=== PATIENT | male | born 1990 ===

== ENCOUNTER 2017-09-20 08:21 | Emergency (ER) | payer BC ==
[2017-09-20 08:28] VITALS: TEMP 98; O2SAT 98
[2017-09-20] MEDS ORDERED: Sodium Chloride 0.9% 1,000 ML IV SCH (09:15)
--- NOTE | 2017-09-20 09:24 | ED PDOC ---
HPI: Abdomen Time Seen by Provider: 09/20/17 08:43 Chief Complaint (Nursing): Abdominal Pain Chief Complaint (Provider): abdominal pain History Per: Patient History/Exam Limitations: no limitations Onset/Duration Of Symptoms: Hrs Outside of [place] travel?: No Current Symptoms Are (Timing): Better Context: Food Severity: Severe Pain Scale Rating Of: 10 Location Of Pain/Discomfort: RLQ, LLQ Quality Of Discomfort: Sharp (intermittent), Cramping Associated Symptoms: Chills, Nausea, Vomiting, Diarrhea (bloody). denies: Fever Exacerbating Factors: None Alleviating Factors: Other (vomiting and bowel movements) Additional Complaint(s): 26 yr old M presents to ED with complaint of abdominal pain accompanied by nonbilious/nonbloody vomiting and bloody diarrhea which began at 4am this morning. Patient reports abdominal pain was in lower abdomen, 10/10 sharp and crampy, alleviated by vomiting and bowel movements, not aggravated by anything. Last meal was a medium cheeseburger and a rack of ribs at 10pm last night. He was not able to tolerate water this morning. Denies fever, chills, weakness, dizziness, dysuria or hematuria. PMD: none PMHx: none SurgHx: appendectomy FMHx: noncontributory SocHx: denies tobacco/Etoh/drugs Medications: none Allergies: NKDA Past Medical History Vital Signs: Last Vital Signs Temp 98.0 F 09/20/17 08:37 Pulse 72 09/20/17 08:37 Resp 18 09/20/17 08:37 BP 127/76 09/20/17 08:37 Pulse Ox 98 09/20/17 10:35 - Medical History PMH: No Chronic Diseases - Surgical History Surgical History: Appendectomy - Family History Family History: States: No Known Family Hx - Living Arrangements Living Arrangements: With Family - Social History Current smoker - smoking cessation education provided: No Ex-Smoker (has not smoked in the last 12 months): No - Home Medications Home Medications: Ambulatory Orders Medication Instructions Recorded No Known Home Med 09/20/17 - Allergies Allergies/Adverse Reactions: Allergies Allergy/AdvReac Type Severity Reaction Status Date / Time nut - unspecified Allergy RASH Verified 09/20/17 08:34 pineapple Allergy RASH Verified 09/20/17 08:34 Review of Systems Constitutional: Negative for: Fever, Chills Eyes: Negative for: Vision Change ENT: Negative for: Nose Discharge, Mouth Swelling, Throat Pain Cardiovascular: Negative for: Chest Pain, Palpitations Respiratory: Negative for: Cough, Shortness of Breath Gastrointestinal: Positive for: Nausea, Vomiting, Abdominal Pain, Diarrhea Musculoskeletal: Negative for: Neck Pain, Shoulder Pain Skin: Negative for: Rash, Lesions, Jaundice Neurological: Negative for: Weakness, Confusion, Dizziness Physical Exam - Physical Exam Appears: Positive for: No Acute Distress Head Exam: Positive for: ATRAUMATIC, NORMOCEPHALIC Skin: Positive for: Normal Color, Warm, Dry Eye Exam: Positive for: EOMI, PERRL ENT: Positive for: TM Is/Are (normal), Other (dry lips, moist mucous membranes) . Negative for: Pharyngeal Erythema, Tonsillar Exudate Neck: Positive for: Painless ROM, Supple Cardiovascular/Chest: Positive for: Regular Rate, Rhythm. Negative for: Gallop , Murmur Respiratory: Positive for: Normal Breath Sounds. Negative for: Rales, Rhonchi Pulses-Carotid (L): 2+ Pulses-Carotid (R): 2+ Pulses-Dorsalis Pedis (L): 2+ Pulses-Dorsalis Pedis (R): 2+ Pulses-Radial (L): 2+ Pulses-Radial (R): 2+ Gastrointestinal/Abdominal: Positive for: Bowel Sounds (present), Soft. Negative for: Tenderness, Distended, Guarding, Rebound Back: Positive for: Normal Inspection Extremity: Positive for: Normal ROM. Negative for: Pedal Edema Neurologic/Psych: Positive for: Alert, alarm installer II-XII, Oriented, Mood/Affect (normal /full range) - Laboratory Results Result Diagrams: 09/20/17 09:30 09/20/17 09:30 - ECG O2 Sat by Pulse Oximetry: 98 - Progress ED Course And Treament: -CBC w/diff, CMP, UA, 1L NS IV, Zofran 4mg PO -10:35 Patient symptoms improved, PO challenge ordered -patient tolerated clear fluids, symptoms resolved Disposition - Clinical Impression Clinical Impression: Gastroenteritis - Patient ED Disposition Is Patient to be Admitted: No Counseled Patient/Family Regarding: Diagnosis, Need For Followup - Disposition Referrals: Eliseo Guy MD [Staff Provider] - Disposition: Routine/Home Disposition Time: 11:53 Condition: IMPROVED Additional Instructions: -follow up with your PMD and gastroenterology within 1 week -return to ED if symptoms worsen or persist Forms: [employer] (Arabic) Print Language: SWEDISH
[2017-09-20 09:51] LABS: URINE BILIRUBIN NEGATIVE (NEGATIVE); URINE BLOOD NEGATIVE (NEGATIVE); URINE CLARITY SLIGHTY-CLOUDY (Clear); URINE COLOR YELLOW (YELLOW); URINE GLUCOSE (UA) NEG (Normal); URINE LEUKOCYTE ESTERASE NEG Leu/uL (Negative); URINE PROTEIN NEGATIVE (NEGATIVE); URINE UROBILINOGEN 0.2-1.0 mg/dL (0.2-1.0)
[2017-09-20 09:53] LABS: BASO % 0.5 % (0.0-2.0); EOS % 0.1 % (0.0-4.0); HEMOGLOBIN 16.5 g/dL (12.0-18.0); LYMPH # 0.8 K/uL (1.0-4.3); LYMPH % 9.4 % (20.0-40.0); MEAN CELL VOLUME 88.6 fl (80.0-94.0); MEAN CORPUSCULAR HEMOGLOBIN 30.4 pg (27.0-31.0); MEAN CORPUSCULAR HGB CONC 34.3 g/dL (33.0-37.0); MONO # 0.6 K/uL (0.0-0.8); NEUT # 7.3 K/uL (1.8-7.0); NRBC % 0.1 % (0.0-0.0); PLATELET COUNT 217 K/uL (130-400); RBC 5.43 Mil/uL (4.40-5.90); RED CELL DISTRIBUTION WIDTH 13.3 % (11.5-14.5); WHITE BLOOD COUNT 8.8 K/uL (4.8-10.8)
[2017-09-20 10:06] LABS: ALB/GLOB RATIO 1.2 (1.0-2.1); ALBUMIN 4.8 g/dL (3.5-5.0); CALCIUM 9.7 mg/dL (8.4-10.2); GFR AFRICAN-AMERICAN > 60; GFR NON-AFRICAN AMERICAN > 60
[2017-09-20 10:15] LABS: ALT/SGPT 34 U/L (21-72); AST/SGOT 39 U/L (17-59); BLOOD UREA NITROGEN 19 mg/dl (9-20)
[2017-09-20 10:57] LABS: BANDS 1 % (0-2); LARGE PLATELETS PRESENT; LYMPHOCYTE 9 % (20-50); MONOCYTE 5 % (0-10); NEUTROPHIL 85 % (42-75); PLATELET ESTIMATE NORMAL (NORMAL); TOTAL CELLS COUNTED 100
[2017-09-20 12:23] VITALS: BP 112/70; PULSE 62; RESP 16
== END 2017-09-20 12:23 | disposition home or self-care (01) ==
LOC: H.ER 08:21
DX: K52.9 Noninfective gastroenteritis and colitis, unspecified (principal)
CPT/HCPCS: 80053; 81003; 85025; 99283; J7040